=== PATIENT | female | born 1945 | race Hispanic/Latino ===

== ENCOUNTER → 2022-11-22 | Outpatient (CLI) | payer OTHER | END | disposition home or self-care (01) | LOC: SHCH 14:44 | PROVIDERS: ATTEND Student in an Organized Health Care Education/Training Program | DX: I08.0 Rheumatic disorders of both mitral and aortic valves (principal); R94.31 Abnormal electrocardiogram [ECG] [EKG] | CPT/HCPCS: 93306 ==

== ENCOUNTER → 2023-02-27 | Outpatient (CLI) | payer OTHER | END | disposition home or self-care (01) | LOC: RAH 08:36 | PROVIDERS: ATTEND Internal Medicine Gastroenterology | DX: K44.9 Diaphragmatic hernia without obstruction or gangrene (principal); R13.10 Dysphagia, unspecified; K22.89 Other specified disease of esophagus | CPT/HCPCS: 74240 ==

== ENCOUNTER 2023-08-16 06:17 | Observation (INO) | payer OTHER ==
[2023-08-14 10:05] LABS: BASOPHILS # (AUTO) 0.02 K/uL (0.00-0.20); BASOPHILS % (AUTO) 0.3 % (0.0-5.0); EOSINOPHILS # (AUTO) 0.21 K/uL (0.00-0.70); HEMATOCRIT 34.4 % (36-48); IMMATURE GRANULOCYTE ABSOLUTE 0.05 K/uL (0-1); LYMPHOCYTES # (AUTO) 2.7 K/uL (1.0-4.8); MEAN CORPUSCULAR HGB CONC 32.3 g/dL (32.0-36.0); MEAN CORPUSCULAR VOLUME 99.1 fL (79-99); MONOCYTES # (AUTO) 0.7 K/uL (0.1-1.0); MONOCYTES % (AUTO) 9.5 % (3.0-13.0); NEUTROPHILS # (AUTO) 3.4 K/uL (1.8-7.7); NEUTROPHILS % (AUTO) 48.5 % (40.0-77.0); PLATELET COUNT (AUTO) 199 K/uL (130-400); RED BLOOD CELL COUNT(AUTO) 3.47 MIL/uL (4.00-5.50); RED CELL DISTRIBUTION WIDTH 14.4 % (11.0-15.5)
[2023-08-14 10:17] LABS: CREATININE 0.9 mg/dL (0.5-1.5); POTASSIUM 4.6 mmol/L (3.5-5.1)
[2023-08-14 10:32] VITALS: BP 177/74; PULSE 80; RESP 18
[2023-08-16] VITALS (30 sets, daily range): BP systolic 100–173; BP diastolic 45–91; PULSE 70–84; RESP 14–19; O2SAT 100
[~2023-08-16] VITALS: Ht 157.5 cm; Wt 67.6 kg
[~2023-08-16 06:17] MED LIST: BENZ200C53 PO; CHOL500045 PO; LISI20TA24 PO; MULT-952 PO
[2023-08-16] MEDS ORDERED: BUPIVACAINE/PF 0.5% 30ML VIAL ONE (07:15)
[2023-08-16] MEDS ORDERED: PROPOFOL 10 MG/ML 20ML VIAL IV ONE (07:32)
[2023-08-16] MEDS ORDERED: LIDOCAINE PF 100MG/5ML (2%) SYRINGE 5ML ONE (07:32)
[2023-08-16] MEDS ORDERED: GLYCOPYRROLATE 0.2 MG/ML 5 ML VIAL ONE (07:32)
[2023-08-16] MEDS ORDERED: ROCURONIUM BROMIDE 10MG/1ML 5ML VL ONE (07:33)
[2023-08-16] MEDS ORDERED: NEOSTIGMINE METHYLSULFATE 1MG/ML IV ONE (07:33)
[2023-08-16] MEDS ORDERED: SUCCINYLCHOLINE CHLORIDE 20 MG/ML 10 ML VIAL ONE (07:33)
[2023-08-16] MEDS ORDERED: FENTANYL CITRATE PF 50 MCG/1 ML 2ML VIAL ONE ×2 (07:33→09:59)
[2023-08-16] MEDS: CEFAZOLIN SODIUM 2 GM VIAL ONE (08:28)
[2023-08-16] MEDS ORDERED: EPHEDRINE SULFATE 50 MG/ML AMPULE ONE (08:38)
[2023-08-16] MEDS: BUPIVACAINE/PF 0.5% 30ML VIAL INJ ONE (08:52)
[2023-08-16] MEDS ORDERED: ONDANSETRON 4MG INJ ONE (09:07)
[2023-08-16] MEDS ORDERED: KETOROLAC 15MG/ML VIAL (15MG/ML) IV PRN (11:00)
[2023-08-16] MEDS: SUGAMMADEX SODIUM 200 MG/2 ML VIAL IV ONE (12:32)
[2023-08-16] MEDS: HYDROMORPHONE 1 MG INJ ONE (12:32)
[2023-08-16] MEDS: FAMOTIDINE 20MG VIAL IV ONE (12:32)
[2023-08-16] MEDS: LACTATED RINGERS 1000ML 1,000 ML IV ONE (12:32)
[2023-08-16] MEDS: ENOXAPARIN SODIUM 30 MG/0.3 ML SQ SCH (12:40)
[2023-08-16] MEDS: LACTATED RINGERS 1000ML 1,000 ML IV SCH (12:40)
[2023-08-16] MEDS: HYDROCODONE/ACETAMINOPHEN 7.5/325 MG 15 ML UDCUP PO PRN (15:23)
[2023-08-16] MEDS: ONDANSETRON 4MG INJ IVP PRN (16:43)
[2023-08-16] MEDS: HYDROMORPHONE 0.5 MG SYG (0.5MG/0.5ML) IVP PRN (19:47)
[2023-08-16] MEDS: FAMOTIDINE 20MG VIAL IV SCH (21:25)
[2023-08-16] MEDS: PROCHLORPERAZINE 10MG/2ML INJ IV PRN (22:04)
[2023-08-17 04:00] VITALS: BP 154/78; PULSE 91; RESP 20
[2023-08-17 08:00] VITALS: BP 135/60; PULSE 85; RESP 20
[2023-08-17 12:00] VITALS: BP 132/58; PULSE 76; RESP 18
[2023-08-17 12:06] VITALS: O2SAT 98
== END 2023-08-17 15:00 | disposition home or self-care (01) ==
LOC: DAH 06:17 → DAHIP 06:18 → INTOOBSV 06:18 → DAH 06:18 → 3DH 12:05
PROVIDERS: ADMIT Surgery; ATTEND Surgery
DX: K44.0 Diaphragmatic hernia with obstruction, without gangrene (principal); R13.10 Dysphagia, unspecified; I10 Essential (primary) hypertension; Z90.710 Acquired absence of both cervix and uterus
CPT/HCPCS: 80048; 85025; 86850; 86900; 86901; 36415; 93005; 96374; 96372 ×2; 96375; 43282; 97161; 97116; A6260; G0378 ×23; A4600; A4663; J7030; A4215 ×3; J7120; J3490 ×5; J3010 ×2; J1170 ×2; J0330; J2001; J1650 ×3; J0780; J2704; J2405 ×2; J2710; J0665 ×2; J0690; G0168; A4649; C1781; A4930; A4223; A4222; A4221; 43235

== ENCOUNTER → 2023-09-03 | Outpatient (CLI) | payer OTHER ==
[2023-09-03 12:21] LABS: BASOPHILS # (AUTO) 0.03 K/uL (0.00-0.20); BASOPHILS % (AUTO) 0.4 % (0.0-5.0); EOSINOPHILS # (AUTO) 0.32 K/uL (0.00-0.70); EOSINOPHILS % (AUTO) 4.4 % (0.0-8.0); HEMATOCRIT 36.2 % (36-48); IMMATURE GRANULOCYTE ABSOLUTE 0.03 K/uL (0-1); LYMPHOCYTES # (AUTO) 2.7 K/uL (1.0-4.8); LYMPHOCYTES % (AUTO) 37.4 % (21.0-51.0); MEAN CORPUSCULAR HEMOGLOBIN 31.9 pg (27.0-33.0); MEAN CORPUSCULAR HGB CONC 31.8 g/dL (32.0-36.0); MEAN CORPUSCULAR VOLUME 100.6 fL (79-99); MONOCYTES # (AUTO) 0.8 K/uL (0.1-1.0); MONOCYTES % (AUTO) 10.9 % (3.0-13.0); NEUTROPHILS # (AUTO) 3.4 K/uL (1.8-7.7); NEUTROPHILS % (AUTO) 46.5 % (40.0-77.0); PLATELET COUNT (AUTO) 257 K/uL (130-400); RED CELL DISTRIBUTION WIDTH 14.3 % (11.0-15.5); WHITE BLOOD COUNT (AUTO) 7.3 K/uL (4.8-10.8)
[2023-09-03 12:33] LABS: HEMOGLOBIN A1C 5.6 % (4.0-6.0)
[2023-09-03 13:01] LABS: ALBUMIN 3.4 g/dL (3.5-5.0); BILIRUBIN,TOTAL 0.6 mg/dL (0.2-1.0); CREATININE 0.9 mg/dL (0.5-1.0); POTASSIUM 5.2 mmol/L (3.5-5.1); THYROID STIMULATING HORMONE 2.44 uIU/mL (0.36-3.74); TOTAL PROTEIN, SERUM 7.8 g/dL (6.0-8.3)
== END | disposition home or self-care (01) ==
LOC: LAB 08:34
PROVIDERS: ATTEND Student in an Organized Health Care Education/Training Program
DX: I49.3 Ventricular premature depolarization (principal); I35.0 Nonrheumatic aortic (valve) stenosis; Z79.899 Other long term (current) drug therapy
CPT/HCPCS: 36415; 80053; 80061; 83036; 84443; 85025

== ENCOUNTER → 2023-11-12 | Outpatient (CLI) | payer OTHER | END | disposition home or self-care (01) | LOC: SHCH 07:44 | PROVIDERS: ATTEND Student in an Organized Health Care Education/Training Program | DX: I08.8 Other rheumatic multiple valve diseases (principal); I70.8 Atherosclerosis of other arteries | CPT/HCPCS: 93306 ==

== ENCOUNTER → 2024-05-16 | Outpatient (CLI) | payer OTHER ==
[2024-05-16 15:49] LABS: ALBUMIN 3.3 g/dL (3.5-5.0); BILIRUBIN,TOTAL 0.4 mg/dL (0.2-1.0); POTASSIUM 4.6 mmol/L (3.5-5.1); TOTAL PROTEIN, SERUM 7.3 g/dL (6.0-8.3)
== END | disposition home or self-care (01) ==
LOC: LAB 14:05
PROVIDERS: ATTEND Student in an Organized Health Care Education/Training Program
DX: R94.31 Abnormal electrocardiogram [ECG] [EKG] (principal)
CPT/HCPCS: 36415; 80053

== ENCOUNTER 2024-06-06 10:57 | Emergency (ER) | payer OTHER ==
[~2024-06-06] VITALS: Ht 157.5 cm; Wt 64.0 kg
[~2024-06-06 10:57] MED LIST changes: -DIPH25CA53 PO; -DiphenhydrAMINE HCL 50 MG/ML VIAL ONE; -IOHEXOL-350 75 ML VIAL IV ONE; -PRED20TA3 PO; -Solu-medROL 125MG VIAL ONE
--- NOTE | 2024-06-06 11:36 | ERN ---
ED Note History of Present Illness Stated Complaint: ALLERGIC REACTION DURING CTA Chief Complaint: Allergic Reaction Dictation: This is a case of 79-year-old female with a past medical history of hypertension, heart murmur, CAD, breast cancer[left lumpectomy in 2017] who was brought to the ER from the CT room after she started experiencing flushing, Throat clogging, productive cough, shortness of breath after dye injection during CTA. She was given dose of 125 mg Solu-Medrol, [address] room. Current vitals pulse rate 80, SpO2 98% on room air, blood pressure 164/88. She states that she feels better other than mild sore throat. Her shortness a breath, productive cough has significantly improved. She denies headache, dizziness, chest pain, shortness of breath, wheezing, palpitations, nausea, vomiting, abdominal pain, numbness/weakness/tingling sensations in bilateral upper and lower extremities. Allergies: Coded Allergies: No Known Drug Allergies (Unverified Allergy, Unknown, 08/14/23) Home Meds Active Scripts Diphenhydramine HCl (Diphenhydramine HCl) 25 Mg Capsule, 1 CAP PO Q6HPRN PRN for ALLERGIC SYMPTOMS for 3 Days, #12 CAP 0 Refills Prov:RADHA GALLARDO MD 06/06/24 Prednisone (Prednisone) 20 Mg Tablet, 1 TAB PO AD for 5 Days, #10 TAB 0 Refills DAY 1 AND 2 20 MG IN THE MORNING P+ 20 MG IN THE EVENING DAY 3 20 MG IN THE MORNING +10 MG IN THE EVENING DAY 4 10 MG IN THE MORNING +10 MG IN THE EVENING DAY 5 5 MG IN THE MORNING + 5 MG IN THE EVENING, THEN STOP Prov:RADHA GALLARDO MD 06/06/24 Reported Medications Multivit with Calcium,Iron,Min (Women's Daily Formula) 27 Mg-0.4 Mg Tablet, 1 EACH PO DAILY, TAB 08/14/23 Cholecalciferol (Vitamin D3) (Vitamin D3) 125 Mcg (5000 Unit) Tablet, 125 MCG PO DAILY, TAB 08/14/23 Benzonatate (Benzonatate) 200 Mg Capsule, 200 MG PO TID, CAP 08/14/23 Lisinopril (Lisinopril) 20 Mg Tablet, 20 MG PO DAILY, TAB 08/14/23 Past Medical History Past Medical History: CAD, Hypertension, Vascular Disease, Other Additional Past Medical Hx: CATARACS, HEART MURMUR Surgical History: Hysterectomy Review of System Dictation CONSTITUTIONAL: No chills, no fever, no weakness, no diaphoresis, no malaise. HEAD/FACE: No signs of trauma. EENT: Cataracts No eye pain, no blurred vision, no tearing, no double vision, no ear pain, no ear discharge, no nose pain, no nasal congestion, no throat pain, no throat swelling, no mouth pain. RESPIRATORY: No cough, no orthopnea, no SOB, no stridor, no wheezing. CARDIOVASCULAR: No chest pain, no edema, no palpitations, no syncope. GASTROINTESTINAL/ABDOMINAL: No abdominal pain, no constipation, no diarrhea, no nausea, no vomiting. GENITOURINARY: No abnormal discharge, no dysuria, no frequent urination, no hematuria. No complaints of pain in the genitals. MUSCULOSKELETAL: No back pain, no gout, no joint pain, no joint swelling, no muscle pain, no muscle stiffness, no neck pain. NEUROLOGICAL/PSYCH: No anxiety, not depressed, no emotional problem, no headache, no numbness, no pre-existing deficit, no history of seizures, no tremors, no weakness. All Systems Negative, Except as Noted. Initial Vital Sign VS Vital Signs Date Time Temp Pulse Resp B/P (MAP) Pulse Ox O2 Delivery O2 Flow Rate FiO2 06/06/24 10:59 97.5 82 17 164/88 100 Room Air 0 06/06/24 12:05 21 Physical Exam Dictation Physical Exam Dictation VITAL SIGNS: Reviewed. GENERAL APPEARANCE: Alert, oriented x3, no acute distress, obese. HEAD AND FACE: Non-traumatic. EYES: PERRL, pink conjunctivas, eyelid no trauma, anterior chamber clear. NOSE: No discharge, no bleeding. OROPHARYNX: Mouth normal, teeth no caries, tongue pink. Pharynx clear, no erythema. Tonsils no exudates, no abscesses noted. Mucous membrane moist. NECK: Supple, non-tender, no thyromegaly, no masses, no JVD, no bruits. BREAST: Deferred. CHEST: No tenderness, no crepitus, no paradoxical movement, no retractions. LUNGS: Clear, well-ventilated, symmetric, no rales, no wheezing, no rhonchi, no stridor, good breath sounds bilaterally. HEART: Regular rate, regular rhythm, heart murmur, no gallops. VASCULAR: No peripheral edema. ABDOMEN: Soft, positive bowel sounds, nondistended, no guarding, nontender, no rebound, no masses no hepatomegaly, no splenomegaly, no Bowles's sign, no hernias. RECTAL: Deferred. GENITAL: Deferred. NEUROLOGICAL: Normal speech, gross motor function intact, gross sensory function intact. MUSCULOSKELETAL: Neck nontender, full range of motion, back nontender EXTREMITIES: Nontender SKIN: Color pink, dry, no turgor, no rash, no lacerations, no abrasions, no contusions. LYMPHATICS: Deferred. ED Course ED Course Orders Procedure Category Date Status Time Ipratropium/Albuterol PHA 06/06/24 Complete Neb (Duoneb) 13:00 Current Medications Medications (Trade) Dose Ordered Sig/Velma Route PRN Reason Start Time Stop Time Status Last Admin Dose Admin Albuterol (DUOneb) 1 UDVIAL ONCE ONCE IH 06/06/24 13:00 06/06/24 13:01 DC Vital Signs Date Time Temp Pulse Resp B/P (MAP) Pulse Ox O2 Delivery O2 Flow Rate FiO2 06/06/24 12:05 98.8 72 20 137/56 98 Room Air* 0 21 06/06/24 10:59 97.5 82 17 164/88 100 Room Air 0 Medical Decision Making [facility] MDM Potential differential diagnoses include: ALLERGIC REACTION TO CONTRAST DYE Assessment: I will re-evaluate the patient after treatment and diagnostic exams have returned to determine whether they require further testing, can be safely discharged home, or need admission for further treatment and evaluation. Given the social determinants of health affecting care, including literacy, access to medical care, prescription drug management, and [id number] dr beckham, I will ensure that treatment plans are tailored accordingly. Revaluation : PATIENT IS ALERT AWAKE AND ORIENTED. HEMODYNAMICALLY STABLE. SHE IS GIVEN DUONEB TREATMENT. HER SHORTNESS OF BREATH, COUGH HAVE SUBSIDED. SHE STATES THAT SHE FEELS BETTER. SHE IS ABLE TO TOLERATE ORAL DRINKS AND FEEDS. Disposition: PATIENT IS BEING DISCHARGED HOME START ON PRESCRIPTIONS OF JORDAN DRYL 25 MG Q.6 H P.R.N. 3 DAYS PREDNISONE 20 MG bid gradually tapered over 5 days Advised to Follow up with PCP within 2-3 days Inform primary care provider about the reaction during the CT scan after IV dye injection Consider wearing a medical alert bracelet stating your allergy to contrast dye Stay hydrated and drink water as tolerated Monitor for symptoms like difficulty breathing, swelling of the face, lip, throat, rash, itching, hives, chest tightness or persistent cough, and seek immediate medical attention in such scenario. DX & DISP Disposition: Discharge Departure Impression: Primary Impression: Allergen injection reaction Condition: Stable Scripts Diphenhydramine HCl (Diphenhydramine HCl) 25 Mg Capsule 1 CAP PO Q6HPRN PRN for ALLERGIC SYMPTOMS for 3 Days, #12 CAP 0 Refills Prov: RADHA GALLARDO MD 06/06/24 Prednisone (Prednisone) 20 Mg Tablet 1 TAB PO AD for 5 Days, #10 TAB 0 Refills DAY 1 AND 2 20 MG IN THE MORNING P+ 20 MG IN THE EVENING DAY 3 20 MG IN THE MORNING +10 MG IN THE EVENING DAY 4 10 MG IN THE MORNING +10 MG IN THE EVENING DAY 5 5 MG IN THE MORNING + 5 MG IN THE EVENING, THEN STOP Prov: RADHA GALLARDO MD 06/06/24 Referrals: MIHAI SINGH MD (PCP) ATTESTATION BY PHYSICIAN I have seen and examined the patient. I reviewed the documentation, medical decision making, and treatment plan as noted by the resident above. I agree with the findings and plan of care. PERCY SCHOFIELD MD, PRIYANKA MD Jun 06, 2024 11:36
[2024-06-06 12:05] VITALS: BP 137/56; TEMP 98.8; O2SAT 98
[2024-06-06] MEDS ORDERED: PRED20TA3 PO (13:29)
[2024-06-06] MEDS ORDERED: DIPH25CA53 PO (13:33)
[2024-06-06 14:05] VITALS: PULSE 80; RESP 20
[2024-06-06] MEDS: IpraTROPium/alBUTERol SULFATE 3 ML SOLUTION IH ONE (15:13)
== END 2024-06-06 13:43 | disposition home or self-care (01) ==
LOC: EDH 10:57
DX: R05.9 Cough, unspecified (principal); R06.02 Shortness of breath; T50.8X5A Adverse effect of diagnostic agents, initial encounter; I10 Essential (primary) hypertension; I25.10 Atherosclerotic heart disease of native coronary artery without angina pectoris; Z90.710 Acquired absence of both cervix and uterus; Y92.89 Other specified places as the place of occurrence of the external cause
CPT/HCPCS: 99283; 75635; 94640; J1200; J2919 ×2; Q9967

== ENCOUNTER → 2024-06-06 | Outpatient (CLI) | payer OTHER ==
[~2024-06-06] MED LIST changes: +DIPH25CA53 PO; +DiphenhydrAMINE HCL 50 MG/ML VIAL ONE; +IOHEXOL-350 75 ML VIAL IV ONE; +PRED20TA3 PO; +Solu-medROL 125MG VIAL ONE
--- NOTE | 2024-06-06 11:39 | HMCIMG ---
Exam Type: CT angiogram abdomen and pelvis and lower extremities run-off with contrast Exam Type: CT ANGIO ABD AORTA W RUNOFF Clinical Information: [facility] [place] ARTERIES OF EXTR Comparison: None Technique: Routine helical scanning at 5mm collimation through the abdomen and pelvis after contrast administration. In addition, sagittal and coronary formations of the abdomen pelvis and surface rendering three-dimensional reconstructions of the abdominal aorta and the bilateral lower extremity arterial system were performed. Findings: The vascular examination is abnormal. The aorta shows plaque without aneurysmal dilatation or occlusion. Both common iliac arteries and superficial femoral arteries and popliteal arteries are patent. The popliteal trifurcation is preserved bilaterally, but in both cases, the posterior tibial artery and interosseous artery are occluded at mid leg level or above. The anterior tibial arteries are occluded near the lateral malleolus without significant distal flow. There is no aortic aneurysm. There is no occlusion. There is no dissection. There is no extravasation to suggest laceration or rupture. No evidence of nephro or ureterolithiasis is found. No hydronephrosis or ureteral dilatation is seen. The visualized portion of the stomach is unremarkable. It shows no wall thickening. No gross ulceration is seen. It is not overly distended. There are no surrounding inflammatory changes. No wall lesions are identified to suggest cancer. The visualized portion of the spleen is unremarkable. It is not enlarged. The pancreas shows normal anatomy. It is not fatty replaced. It shows no lesions. The pancreatic duct is not dilated. The gallbladder is unremarkable. It shows no cholelithiasis. The gallbladder wall is normal in thickness. There is no pericholecystic fluid. The is no acute or chronic inflammation noted. The adrenal glands are unremarkable. There is no enlargement. No lesions are noted. The visualized portion of the liver is unremarkable. It shows no focal masses. The appendix is unremarkable. It shows no evidence of inflammation. No appendicolith is seen. The small bowel is unremarkable. There is no evidence of dilatation to suggest obstruction. No evidence of adynamic ileus is seen. There is no small bowel wall thickening to suggest enteritis. The colon is unremarkable. The urinary bladder is unremarkable. There is no wall thickening to suggest tumor or inflammation. There are no intraluminal calculi. There are no diverticula. There is no evidence of chronic bladder outlet obstruction. There is no evidence of urinary bladder distention to suggest urinary retention. The other pelvic structures are unremarkable. The bony and vascular structures are unremarkable for the patient's age. IMPRESSION: Severe runoff disease bilaterally as noted above. This study was performed using dose reduction techniques to include automated exposure control and/or adjustment of the mA and/or kV according to patient size.
== END | disposition home or self-care (01) ==
LOC: RAH 09:12 → EDSTATUS 09:30
PROVIDERS: ATTEND Student in an Organized Health Care Education/Training Program
DX: I70.203 Unspecified atherosclerosis of native arteries of extremities, bilateral legs (principal)
CPT/HCPCS: 75635; J1200; J2919 ×2; Q9967

== ENCOUNTER 2024-12-23 11:37 | Emergency (ER) | payer OTHER ==
[~2024-12-23] VITALS: Ht 157.5 cm; Wt 63.5 kg
[~2024-12-23 11:37] MED LIST changes: +DIPH25CA53 PO; +PRED20TA3 PO
--- NOTE | 2024-12-23 13:03 | HMCIMG ---
EXAM: CR Pelvis, 1 View. CLINICAL HISTORY: fall COMPARISON: None provided. FINDINGS: Spondylosis of the visualized lower lumbar spine. BONES: No acute fracture or aggressive appearing osseous lesion. JOINTS: No dislocation. The joint spaces are normal. SOFT TISSUES: The soft tissues are unremarkable. IMPRESSION: No acute osseous abnormality. /[place]
--- NOTE | 2024-12-23 13:05 | HMCIMG ---
EXAM: CR Chest, 1 View. CLINICAL HISTORY: fall COMPARISON: None provided. FINDINGS: LUNGS: The lungs show no infiltrate or other acute finding. PLEURAL SPACES: No evidence of pleural effusion or pneumothorax. MEDIASTINUM: Cardiac size and mediastinal contours within normal limits. BONES: No aggressive appearing osseous lesion seen. IMPRESSION: No acute cardiopulmonary pathology is evident. /[place]
--- NOTE | 2024-12-23 13:05 | HMCIMG ---
EXAM: CR Left Shoulder, 2 View. CLINICAL HISTORY: fall COMPARISON: None provided. FINDINGS: BONES: No acute fracture or aggressive appearing osseous lesion. Old, malunited mid left humeral fracture. JOINTS: No dislocation. Osteoarthritic changes at the acromioclavicular and glenohumeral joints. Large subacromial spur and shortening of the cervical interval likely reflects rotator cuff tendon tear that is chronic in nature. SOFT TISSUES: The soft tissues are unremarkable. Clips project of the left chest wall. IMPRESSION: 1. No acute osseous injury. 2. Large subacromial spur with shortened cervical interval suggesting chronic rotator cuff tear. /[place]
--- NOTE | 2024-12-23 13:50 | ERN ---
ED Note History of Present Illness Stated Complaint: FALL Chief Complaint: Mechanical Fall Time Seen by MD: 11:43 Time Seen by Midlevel: 11:46 Dictation: 79-year-old female with a history of hypertension coming in status post ground level fall. Patient states she was coming out of the shower slipped and fell landing on her buttocks and then hit the side of her head on the wall. Negative LOC, no blood thinners. Patient is complaining of left shoulder pain, and headache. No obvious deformities or abrasions. Allergies: Coded Allergies: No Known Drug Allergies (Unverified Allergy, Unknown, 08/14/23) Home Meds Active Scripts Diphenhydramine HCl (Diphenhydramine HCl) 25 Mg Capsule, 1 CAP PO Q6HPRN PRN for ALLERGIC SYMPTOMS for 3 Days, #12 CAP 0 Refills Prov:RADHA GALLARDO MD 06/06/24 Prednisone (Prednisone) 20 Mg Tablet, 1 TAB PO AD for 5 Days, #10 TAB 0 Refills DAY 1 AND 2 20 MG IN THE MORNING P+ 20 MG IN THE EVENING DAY 3 20 MG IN THE MORNING +10 MG IN THE EVENING DAY 4 10 MG IN THE MORNING +10 MG IN THE EVENING DAY 5 5 MG IN THE MORNING + 5 MG IN THE EVENING, THEN STOP Prov:RADHA GALLARDO MD 06/06/24 Reported Medications Multivit with Calcium,Iron,Min (Women's Daily Formula) 27 Mg-0.4 Mg Tablet, 1 EACH PO DAILY, TAB 08/14/23 Cholecalciferol (Vitamin D3) (Vitamin D3) 125 Mcg (5000 Unit) Tablet, 125 MCG PO DAILY, TAB 08/14/23 Benzonatate (Benzonatate) 200 Mg Capsule, 200 MG PO TID, CAP 08/14/23 Lisinopril (Lisinopril) 20 Mg Tablet, 20 MG PO DAILY, TAB 08/14/23 Past Medical History Past Medical History: CAD, Hypertension, Vascular Disease, Other Additional Past Medical Hx: CATARACS, HEART MURMUR Surgical History: Hysterectomy, None Review of System Dictation Constitutional: Negative for fever,chills, and weight loss Eyes: Negative for injury, pain,redness, and discharge ENT: Negative for injury,pain or swelling Cardiovascular: Negative for chest pain, palpitations, and edema Respiratory: Negative for shortness of breath, cough, and wheezing, Abdomen/GI: Negative for abdominal pain, nausea, vomiting, diarrhea, and constipation Back: Negative for injury and pain : Negative for injury, bleeding and discharge MS/Extremity: Negative for injury and deformity, complaining of left shoulder pain Skin: Negative for rash, and discoloration Neuro: Positive for headache, no weakness, no numbness, no tingling, and no seizure Psych: Negative for suicide ideation, homicidal ideation, and hallucinations Review of Systems: was completed Initial Vital Sign VS Vital Signs Date Time Temp Pulse Resp B/P (MAP) Pulse Ox O2 Delivery O2 Flow Rate FiO2 12/23/24 11:42 98.6 87 18 174/72 97 12/23/24 12:15 Room Air* 0 21 Physical Exam Dictation General: awake, alert, NAD Head/Face: Left-sided. parietal hematoma Eyes: PERRL, EOMI, vision at baseline ENT: oral cavity clear, TMs clear, no signs of infection Neck: Trachea midline, supple, no nuchal rigidity Cardiovascular: RRR, normal S1/S2, No MRGs, no JVD Respiratory: CTAB, no respiratory distress, No rales or wheezes Abdomen: Soft, non-tender, non-distended, normal bowel sounds, no guarding or rebound. Skin: Warm, dry, normal turgor, no rash MS/Extremity: Pulses equal, no cyanosis, neurovascular intact, FROM Neuro: COAx4, GCS 15, strength 5/5, CN 2-12 intact, normal cerebellar exam, normal gait, Psych: Normal behavior, mood, and affect normal Results (Laboratory/Radiology) X-RAY Comment: [place] [address] [place] [address] IMAGING REPORT Signed PATIENT: RICK CEDEÑO MR#: [id number] : 1945 SEX: F AGE: 79 LOCATION: [facility] ORDER 46 STATUS: REG ER [facility]OSPITAL REPORT#: [id number] SERVICE 1145 REASON: fall ORDERING PHYSICIAN: CHRISTIANO VIZCAINO NP PROCEDURE: SHOL 2V LT - SHOULDER COMP 2+VWS LT EXAM: CR Left Shoulder, 2 View. CLINICAL HISTORY: fall COMPARISON: None provided. FINDINGS: BONES: No acute fracture or aggressive appearing osseous lesion. Old, malunited mid left humeral fracture. JOINTS: No dislocation. Osteoarthritic changes at the acromioclavicular and glenohumeral joints. Large subacromial spur and shortening of the cervical interval likely reflects rotator cuff tendon tear that is chronic in nature. SOFT TISSUES: The soft tissues are unremarkable. Clips project of the left chest wall. IMPRESSION: 1. No acute osseous injury. 2. Large subacromial spur with shortened cervical interval suggesting chronic rotator cuff tear. /[place] DICTATED BY: FRANSISCO NEAL Jr., MD DATE: 12/23/241402 ELECTRONICALLY SIGNED BY: FRANSISCO NEAL Jr., MD DATE: 12/23/241402 [place] [id number] IMAGING REPORT Signed PATIENT: RICK CEDEÑO MR#: [id number] : 1945 SEX: F AGE: 79 LOCATION: [facility] ORDER 46 STATUS: [facility] REPORT#: [id number] SERVICE 44 REASON: fall ORDERING PHYSICIAN: CHRISTIANO VIZCAINO NP PROCEDURE: PELVIS - PELVIS 1-2VWS EXAM: CR Pelvis, 1 View. CLINICAL HISTORY: fall COMPARISON: None provided. FINDINGS: Spondylosis of the visualized lower lumbar spine. BONES: No acute fracture or aggressive appearing osseous lesion. JOINTS: No dislocation. The joint spaces are normal. SOFT TISSUES: The soft tissues are unremarkable. IMPRESSION: No acute osseous abnormality. /[place] DICTATED BY: FRANSISCO NEAL Jr., MD DATE: 12/23/241401 ELECTRONICALLY SIGNED BY: FRANSISCO NEAL Jr., MD DATE: 12/23/241401 [place] [id number] [phone]) IMAGING REPORT Signed PATIENT: RICK CEDEÑO MR#: [id number] : 1945 SEX: F AGE: 79 LOCATION: ED ORDER 46 STATUS: REG ER HOSPITAL REPORT#: [id number] SERVICE 44 REASON: fall ORDERING PHYSICIAN: CHRISTIANO VIZCAINO NP PROCEDURE: CXR1VW - CHEST 1VW EXAM: CR Chest, 1 View. CLINICAL HISTORY: fall COMPARISON: None provided. FINDINGS: LUNGS: The lungs show no infiltrate or other acute finding. PLEURAL SPACES: No evidence of pleural effusion or pneumothorax. MEDIASTINUM: Cardiac size and mediastinal contours within normal limits. BONES: No aggressive appearing osseous lesion seen. IMPRESSION: No acute cardiopulmonary pathology is evident. /[place] DICTATED BY: FRANSISCO NEAL Jr., MD DATE: 12/23/241403 ELECTRONICALLY SIGNED BY: FRANSISCO NEAL Jr., MD DATE: 12/23/241403 CT Scan Comment: [place] [id number] [address] IMAGING REPORT Signed PATIENT: RICK CEDEÑO MR#: [id number] : 1945 SEX: F AGE: 79 LOCATION: ED ORDER 46 STATUS: REG ER REPORT#: [id number] SERVICE 44 REASON: fall, hematoma ORDERING PHYSICIAN: CHRISTIANO VIZCAINO NP PROCEDURE: HEAD WO - CT HEAD/BRAIN W/O CONTRAST EXAM: CT Head Without IV contrast. CLINICAL HISTORY: fall, hematoma TECHNIQUE: Axial computed tomography images of the head/brain without intravenous contrast. COMPARISON: None provided. FINDINGS: BRAIN: No evidence of acute hemorrhage. No mass lesion. No CT evidence for acute territorial infarct. No midline shift or extra-axial collections. Age-related cerebral atrophy. Bilateral periventricular hypodensities suggest small vessel ischemic disease. ORBITS: The orbits are unremarkable. SINUSES AND MASTOIDS: The paranasal sinuses and mastoid air cells are clear. BONES: No fracture. SOFT TISSUES: Unremarkable. IMPRESSION: 1. No acute intracranial findings. /[place] DICTATED BY: FRANSISCO NEAL Jr., MD DATE: 12/23/241447 ELECTRONICALLY SIGNED BY: FRANSISCO NEAL Jr., MD DATE: 12/23/241447 ED Course ED Course Orders Procedure Category Date Status Time Ct Head/Brain W/O CT 12/23/24 Resulted Contrast 11:45 Pelvis 1-2vws RAD 12/23/24 Resulted 11:45 Chest 1vw RAD 12/23/24 Resulted 11:45 Shoulder Comp 2+Vws Lt RAD 12/23/24 Resulted 11:45 Acetaminophen 325 Tab PHA 12/23/24 Complete (Tylenol 325mg Tab 11:45 Current Medications Medications (Trade) Dose Ordered Sig/Velma Route PRN Reason Start Time Stop Time Status Last Admin Dose Admin Acetaminophen (TYLenol 325MG TAB) 650 mg ONCE STAT PO 12/23/24 11:45 12/23/24 11:47 DC 12/23/24 12:26 Vital Signs Date Time Temp Pulse Resp B/P (MAP) Pulse Ox O2 Delivery O2 Flow Rate FiO2 12/23/24 12:15 98.4 78 16 150/65 100 Room Air* 0 21 12/23/24 11:42 98.6 87 18 174/72 97 Medical Decision Making MDM MDM: 79-year-old female with a history of hypertension coming in status post ground level fall. Patient states she was coming out of the shower slipped and fell landing on her buttocks and then hit the side of her head on the wall. Negative LOC, no blood thinners. Patient is complaining of left shoulder pain, and headache. No obvious deformities or abrasions. Imaging is negative for any fractures or dislocations. CT scan of the head shows no acute findings. Discussed findings with the patient. Educated them to return to the hospital if they have any headache, dizziness, nausea vomiting. Otherwise follow up with her PCP. Differential diagnosis: Scalp hematoma, ICH, SDH, hip fracture, left shoulder dislocation Rationale: Tests considered and ordered secondary to shared decision making include: Previous outside records reviewed: Old ER visits. Risk of complication and/or morbidity or mortality of patient management: None Medications-Per medication reconciliation Need for hospitalization: Patient does not meet criteria for hospitalization. Need for emergency major/minor surgery: No There are no social concerns with this patient. Prescription drug management Prescriptions will include symptomatic care Patient's prior external medical records from other ER visits were reviewed by me as indicated. Prior testing and results from previous visits were reviewed. Prior tests were taken into account with medical decision making and resource utilization, independent historian/historians were used to obtain complete medical history. I independently interpreted the test that were performed, results were reviewed by me and considered findings on radiology if ordered. Medical management and examination interpretation discussions were had by me with other qualified healthcare professionals as indicated for the patient's care. DX & DISP Disposition: Discharge Departure Impression: Primary Impression: Fall Additional Impression: Head contusion Condition: Stable Additional Instructions: Your x-rays and CT scan of the head showed no findings. You will be sore for the next couple of days which you can take Tylenol [id number] for. If you began with severe headaches, nausea and vomiting, blurred vision, dizziness return back to the hospital otherwise follow up with your primary care provider in 1-2 days. Referrals: MIHAI SINGH MD (PCP) Time of Disposition: 13:53 I have reviewed the case, and I agree with, Diagnosis and Plan CHRISTIANO VIZCAINO NP Dec 23, 2024 13:49
[2024-12-23 14:49] VITALS: BP 147/68; PULSE 77; RESP 18; TEMP 98.4; O2SAT 98
== END 2024-12-23 15:10 | disposition home or self-care (01) ==
LOC: EDH 11:37
DX: S00.93XA Contusion of unspecified part of head, initial encounter (principal); I10 Essential (primary) hypertension; I25.10 Atherosclerotic heart disease of native coronary artery without angina pectoris; Z79.899 Other long term (current) drug therapy; Z90.710 Acquired absence of both cervix and uterus; W01.0XXA Fall on same level from slipping, tripping and stumbling without subsequent striking against object, initial encounter; Y93.89 Activity, other specified; Y92.89 Other specified places as the place of occurrence of the external cause; Y99.8 Other external cause status
CPT/HCPCS: 70450; 71045; 72170; 73030; 99284